=== PATIENT | male | born 1995 | race Caucasian/White ===

== ENCOUNTER 2022-03-24 19:08 | Emergency (ER) | payer OTHER, SELFPAY ==
[2022-03-24 19:10] VITALS: BP 150/83; PULSE 79; RESP 16; TEMP 36.6; O2SAT 99; BMI 27.4
--- NOTE | 2022-03-24 19:20 | ED.RN ---
Addendum entered by Corinne Rosas 03/24/22 20:58: Harvest Manager called patient and per patient he is required to have a NON DOT drug screen. Corporate care notified. Addendum entered by Corinne Rosas 03/24/22 20:09: This RN attempted again to contact Isauro Meadows, no answer. Original Note: PT REPORTS HE WORKS FOR [employer]. THIS RN ATTEMPTED TO FIND FOR WORKMANS COMP IN OUR SYSTEM, COMPANY NOT LISTED IN OUR FORMULARY. THIS RN CALLED ISAURO MEADOWS, PT SURVEILLANCE SENSOR OPERATOR AT [phone]. NO ANSWER. LEFT VOICEMAIL WITH CALLBACK NUMBER AND BRIEF MESSAGE STATING, ONE OF HIS EMPLOYEES IS BEING SEEN FOR A WORK RELATED INJURY, AND TO CALL BACK TO THE HOSPITAL FOR US TO OBTAIN FURTHER INFORMATION REGARDING WORKMANS COMP. PRIMARY RN INFORMED ALSO.
--- NOTE | 2022-03-24 19:24 | RAD_ITS ---
EXAM: XR RIGHT KNEE COMPLETE, 4 OR MORE VIEWS CLINICAL INDICATION: trauma TECHNIQUE: Four or more views of the right knee. This report was created using [employer] report generation technology. COMPARISON: None. FINDINGS: BONES/JOINTS: Unremarkable. No acute fracture. No subluxation. Normal alignment. Preservation of the joint space with the exception of mild narrowing of the medial joint compartment and mild subchondral sclerosis of the medial tibial plateau. No joint effusion. No sclerotic or destructive changes observed. SOFT TISSUES: Mild soft tissue swelling anterior to the patella and infrapatellar ligament region. No soft tissue swelling or gas. No radiopaque foreign body. RAD/Knee 4 or More Views IMPRESSION: Mild degenerative changes at the medial joint compartment. Mild superficial soft tissue swelling. No other obviously acute findings. Electronically Signed: Ruth Heath MD at 20:09 EDT ,
--- NOTE | 2022-03-24 19:25 | EDS_ITS ---
HPI History of Present Illness Chief Complaint: Lower Extremity Injury Informant: patient Narrative Narrative: Yesterday patient hurt his right knee at work. He was tightening strap on a trailer. He was pulling down hard when the strap broke. This caused him to fall to the ground. He somehow landed with his leg under him. When he got up he could not fully straighten his right knee. He kicked it and it went straight he had a pop. Since then he has been able to move the knee. It is somewhat painful with weightbearing. It has some mild swelling. He has had problems with his knee in the past. He had repair of a bucket-handle meniscus injury back in about October 2020. He had been doing well until the event yesterday. No other injury. No chronic medical conditions No routine medications Allergy to Toradol and tramadol Surgery as above [facility] Medical History Injury of left clavicle Meniscus, medial, bucket handle tear, old Right inguinal hernia Home Medications NK 03/24/22 [History Last Taken Unknown] Allergy/AdvReac Type Severity Reaction Status Date / Time ketorolac [From Toradol] Allergy Hives Verified 03/24/22 19:08 tramadol Allergy Hives Verified 03/24/22 19:08 Social History Smoking Status: Current every day smoker tobacco type: cigarettes ROS ROS ED Constitutional Constitutional ED: Denies chills or fever(s) Gastrointestinal Gastrointestinal: Denies nausea or vomiting Musculoskeletal Musculoskeletal: Reports arthralgias and other Details: See history of present illness ; Denies back pain or neck pain Integumentary Denies abscess, Abrasions or rash Neurologic Neurologic: Denies paresthesias or weakness EXAM Physical Exam Const Vital Signs: 03/24/22 19:10 Temperature 97.8 F Temperature Source Temporal Pulse Rate 79 Respiratory Rate 16 Blood Pressure 150/83 H Blood Pressure Mean 105 Pulse Ox 99 Oxygen Delivery Method Room Air Positive well nourished and well developed General Appearance ED: well developed and NAD HEENT Negative for trauma Chest Wall inspection of chest normal Resp normal respiratory effort Extremity Extremity Narrative: Right knee does have a small effusion. But its not red or warm. No abrasions. No deformity. Extensor mechanism is intact. There is no distal swelling or tenderness. Distal pulses are intact. Distal sensation is intact. Neuro oriented x3 Sensorium / Orientation: alert Sensory Exam: No sensory level loss detected Motor Exam: strength 5/5 throughout Psych mental status grossly normal Skin no rashes or lesions noted and no wounds Trauma: Negative for abrasion MDM MDM MDM Narrative Medical decision making narrative: Patient's x-ray shows some mild degenerative changes but no acute process/bony fracture. There is some soft tissue swelling. Patient's knee is stable on exam. No medial collateral or cruciate laxity noted. I do not think he needs a knee immobilizer. He may need outpatient follow-up and possible MRI. I think it is more likely he had knee locking due to meniscal injury than knee/patellar dislocation. He has excellent distal pulses. No posterior tenderness. He will be treated with rest ice nonsteroidals and follow-up. He has seen Dr. Garcia in the past for his right knee and will follow up. Radiography Diagnostic Testing: Clinical Impression(s) from Imaging Studies Knee X-Ray 03/24/22 19:24 IMPRESSION: Mild degenerative changes at the medial joint compartment. Mild superficial soft tissue swelling. No other obviously acute findings. Electronically Signed: Ruth Heath MD at 20:09 EDT , Discharge Plan Triage Chief Complaint: Lower Extremity Injury ED Provider: Renan Villaseñor Dx/Rx/DC Orders Clinical Impression: Contusion of knee, right, Strain of knee Instructions: ED Meniscal Injury Knee Poss Prescriptions: No Action NK RF: 0 Primary Care Provider: Josey Hernandez NP Referrals: Glen Garcia MD [STAFF PHYSICIAN] - As soon as possible Disposition Disposition: Home, Self Care
[2022-03-24 20:54] VITALS: RESP 18
[2022-03-24] MEDS: HYDROcodone Bitartrate/Apap 5/325 Tablet PO (21:18)
== END 2022-03-24 21:52 | disposition home or self-care (01) ==
LOC: ED 19:55
PROVIDERS: Emergency Provider Emergency Medicine; PCP Nurse Practitioner Family; Visit Provider Emergency Medicine
DX: S80.01XA Contusion of right knee, initial encounter (principal); F17.210 Nicotine dependence, cigarettes, uncomplicated; W19.XXXA Unspecified fall, initial encounter; S83.91XA Sprain of unspecified site of right knee, initial encounter
CPT/HCPCS: 73564; 99283

== ENCOUNTER 2023-09-10 09:27 | Emergency (ER) | payer OTHER, SELFPAY ==
[2023-09-10 09:28] VITALS: BP 142/83; PULSE 91; RESP 16; TEMP 36.4; O2SAT 99; BMI 30.7
--- NOTE | 2023-09-10 09:51 | EX.ED.DYSGE1 ---
HPI History of Present Illness Chief Complaint: Rash Informant: patient Onset/Context/Timing Onset: Yesterday Context: Sudden Onset Timing: Continuous Quality: Sharp Location: Bilateral groin Worsened by: Pressure Relieved by: Nothing Narrative Narrative: Patient presents with bilateral inguinal pain that began yesterday. Patient states it began rather suddenly. Patient describes the pain as sharp. Patient states that his bilateral groin area. Patient states it is worse with any pressure to the area. Patient states nothing seems to help with the pain. Patient states it has been constant. Patient denies any fevers or chills. Patient denies any dysuria or hematuria. Patient admits to some mild testicular pain. Patient denies any urethral discharge or drainage. Patient was recently put on prednisone for a rash. [facility] Medical History (Updated 09/10/23 @ 11:[address] Alcides Waldrop DO) Injury of left clavicle Meniscus, medial, bucket handle tear, old Right inguinal hernia Home Medications citalopram 10 mg tablet 10 mg PO DAILY 09/10/23 [History Last Taken 09/09/23] hydrocodone-acetaminophen 5-325mg 5mg-325mg 1 tab PO Q6H PRN pain 3 days #10 tabs 09/10/23 [Rx Last Taken Unknown] Allergy/AdvReac Type Severity Reaction Status Date / Time ketorolac [From Toradol] Allergy Hives Verified 09/10/23 09:30 tramadol Allergy Hives Verified 09/10/23 09:30 Surgical History Hx of arthroscopy of right knee Hx of inguinal herniorrhaphy Social History Smoking Status: Current every day smoker tobacco type: cigarettes ROS ROS ED Constitutional Constitutional ED: Denies chills or fever(s) Eyes Eyes: Denies blurry vision or change in vision ENT ENT ED: Reports sore throat; Denies rhinorrhea Cardiovascular Cardiovascular: Denies chest pain or palpitations Respiratory/Chest Respiratory/Chest: Denies cough or dyspnea Gastrointestinal Gastrointestinal: Reports nausea; Denies vomiting Genitourinary Genitourinary ED: Denies dysuria or hematuria Musculoskeletal Musculoskeletal: Denies back pain or neck pain Integumentary Reports rash; Denies abscess Neurologic Neurologic: Denies headache(s) or weakness Allergic/Immunologic Allergic/Immunologic ED: Denies mouth swelling or urticaria EXAM Physical Exam Const Vital Signs: 09/10/23 09:28 Temperature 97.6 F L Temperature Source Temporal Pulse Rate 91 Respiratory Rate 16 Blood Pressure 142/83 H Blood Pressure Mean 102 Pulse Ox 99 Oxygen Delivery Method Room Air Positive well nourished and well developed General Appearance ED: well developed and NAD HEENT Reports moist mucous membranes Eyes PERRL and EOMs intact bilaterally Neck supple and no JVD Resp normal respiratory effort and clear to auscultation bilaterally Cardio regular rate and regular rhythm GI non-distended GI Narrative: There is mild tenderness in the inguinal areas bilaterally. There are no hernias palpated. Palpation: soft Narrative: There is mild testicular tenderness. There are no masses palpated. Extremity normal to inspection Neuro oriented x3, CN's II-XII intact bilaterally and no sensory deficits noted Sensorium / Orientation: alert Motor Exam: strength 5/5 throughout MDM MDM MDM Narrative Medical decision making narrative: Differential diagnosis includes inguinal strain, ureteral calculus, urinary tract infection, orchitis, and viral illness. CBC will be obtained to assess for leukocytosis and anemia. Basic metabolic profile will be obtained to assess for electrolyte abnormality and renal function. Urinalysis will be obtained to assess for urinary tract infection and hematuria. CT scan of the abdomen pelvis will be obtained to assess for ureteral calculus. Lab Data Attestation: I reviewed the patient's lab results. Lab results narrative: CBC was reviewed and shows a mild leukocytosis of 13.5. This is likely due to the prednisone. Basic metabolic profile was reviewed and was within normal limits. Urinalysis was reviewed. There is no evidence of urinary tract infection or hematuria. Labs: Laboratory Results - last 24 hr 09/10/23 09/10/23 10:15 10:30 WBC 13.5 H RBC 4.35 L Hgb 13.3 Hct 39.7 L MCV 91.3 MCH 30.6 MCHC 33.5 RDW Std Deviation 42.5 RDW Coeff of Derrek 12.7 Plt Count 358 MPV 9.3 Immature Gran % (Auto) 0.300 Neut % (Auto) 69.3 Lymph % (Auto) 19.1 [place] % (Auto) 9.3 Eos % (Auto) 1.9 Baso % (Auto) 0.1 Absolute Neuts (auto) 9.3 H Absolute Lymphs (auto) 2.58 Nucleated RBC % 0 Sodium 140 Potassium 4.0 Chloride 109 H Carbon Dioxide 25.0 Anion Gap 6 BUN 12 Creatinine 0.66 L Estim Creat Clear Calc 151.71 Est GFR (MDRD) Af Amer 185 Est GFR (MDRD) Non-Af 153 BUN/Creatinine Ratio 18.2 Glucose 91 Calcium 8.9 Urine Color Yellow Urine Clarity Clear Urine pH 8.0 Ur Specific [place] 1.015 Urine Protein Negative Urine Glucose (UA) Normal Urine Ketones Negative Urine Occult Blood Negative Urine Nitrite Negative Urine Bilirubin Negative Urine Urobilinogen Normal Ur Leukocyte Esterase Negative Urine RBC 0 SEEN Urine WBC 0 SEEN Ur Squamous Epith Cells 0 SEEN Urine Bacteria 0 SEEN Urine Mucus 0 SEEN Radiography Diagnostic Testing: Clinical Impression(s) from Imaging Studies Abdomen/Pelvis CT 09/10/23 10:04 IMPRESSION: Small umbilical hernia containing fat. Small bilateral inguinal lymph nodes. Electronically Signed: Morris Robles MD at 10:52 EST , CT scan of the abdomen pelvis was obtained. There is a small umbilical hernia contains fat. There are small bilateral inguinal lymph nodes. There is no acute abnormality. There is no free air or free fluid. This was interpreted by the radiologist was also independently reviewed by myself. Treatment and Re-Evaluation :: Patient was advised of his findings. On reevaluation, patient is complaining of pain in his left great toe. Examination of the left foot revealed tenderness and mild edema over the left first MTP joint. Patient was advised that this could be gout or pseudogout. Since the patient is currently on prednisone, patient was advised that this would help with the inflammation and pain in his left great toe. Patient was given a prescription for a short course of Dagmar. Patient was instructed to follow-up with his primary care physician in 5 to 7 days. Patient understood and was agreeable with the plan. All questions were answered. Discharge Plan Triage Chief Complaint: Rash ED Provider: Alcides Waldrop Dx/Rx/DC Orders Clinical Impression: Acute inguinal lymphadenitis, Pain of left great toe Instructions: Lymphadenopathy, ED Gout Prescriptions: Continued hydrocodone-acetaminophen 5-325 mg tablet 1 tab PO Q6H PRN (Reason: pain) 3 Days Qty: 10 0RF No Action citalopram 10 mg tablet 10 mg PO DAILY Patient Comments: TAKE 1 TABLET BY MOUTH ONCE DAILY Primary Care Provider: Josey Hernandez NP Referrals: Josey Hernandez NP, LEASE ADMINISTRATION SUPERVISOR-C [Primary Care Provider] - 3-5 Days Disposition Disposition: Home, Self Care
--- NOTE | 2023-09-10 10:04 | CT_ITS ---
STUDY: CT ABDOMEN AND PELVIS WITHOUT CONTRAST REASON FOR EXAM: Male, 27 years old. Left groin pain. RADIATION DOSAGE (If Supplied By Facility): CTDIvol = ( 8.85 ) mGy, DLP = ( 437.53 ) mGycm TECHNIQUE: Transaxial images were obtained from the dome of the diaphragm to the symphysis pubis without oral contrast, and without intravenous contrast. Sagittal and coronal images were reconstructed. Individualized dose optimization techniques were used for this CT. COMPARISON: Comparison is made with prior study dated May 11, 2015 FINDINGS: The visualized lung bases are unremarkable. The visualized portions of the heart are within normal limits. Normal liver. Normal gallbladder and extrahepatic biliary system. Normal spleen. Normal pancreas. Normal bilateral adrenal glands. Normal right kidney. Normal left kidney. Normal visualized stomach. Normal small intestine. Normal colon. The appendix is visualized and appears normal. Normal abdominal aorta. Normal inferior vena cava. Normal retroperitoneum. Normal urinary bladder. There is a small umbilical hernia containing fat. Small bilateral inguinal lymph nodes. Normal osseous structures. CT/Abdomen/Pelvis without Cont IMPRESSION: Small umbilical hernia containing fat. Small bilateral inguinal lymph nodes. Electronically Signed: Morris Robles MD at 10:52 [facility] ,
[2023-09-10] MEDS: 0.9% Normal Saline (1000mL) 1,000 ML 1000 ML IV (10:27)
[2023-09-10] MEDS: Morphine 4 MG/ML Syringe IV (10:27)
[2023-09-10] MEDS: Ondansetron 4 MG/2 ML Vial IV (10:27)
[2023-09-10 10:36] LABS: Bacteria 0 SEEN /hpf (None Seen); Mucous, Urine 0 SEEN /hpf (<or=2+); Red Blood Cells-Urine 0 SEEN /hpf (0-5); Squamous Epithelial Cells - UA 0 SEEN /hpf (0-5); White Blood Cells 0 SEEN /hpf (0-5)
[2023-09-10 10:39] LABS: Absolute Lymphocyte Count 2.58 X10^3/uL (0.83-4.51); Absolute Neutrophil Count 9.3 X10^3/uL (2.0-7.7); Basophil# 0.02 X10^3/uL; Basophil% 0.1 % (0-1); Eosinophil# 0.26 X10^3/uL; Eosinophils% 1.9 % (0-5); Hematocrit 39.7 % (40-54); Hemoglobin 13.3 g/dL (13.0-16.5); Lymphocyte # 2.58 X10^3/ul (0.83-4.51); Lymphocyte % 19.1 % (19-41); Mean Corp Hgb Conc 33.5 g/dL (32-36); Mean Corpuscular Hgb 30.6 pg (27.0-32.0); Mean Corpuscular Volume 91.3 fL (80-94); Mean Platelet Vol. 9.3 fl (6.2-12.0); Monocyte# 1.25 X10^3/uL; Monocyte% 9.3 % (0-10); NRBC Flagged by Analyzer 0 % (0-5); Neutrophil # 9.33 X10^3/uL (2.7-7.7); Neutrophil % 69.3 % (47-70); Platelet Count 358 K/mm3 (150-450); RBC Distribution Width CV 12.7 % (11.6-14.6); RBC Distribution Width SD 42.5 fl (35.1-43.9); Red Blood Count 4.35 M/mm3 (4.6-6.2); White Blood Count 13.5 K/mm3 (4.4-11.0)
[2023-09-10 10:40] LABS: Color, Urine Yellow (Yellow); Glucose, Dipstick Normal (Normal); Ketone-Dipstick Negative (Negative); Leukocyte Esterase-Dipstick Negative /ul (Negative); Nitrite-Dipstick Negative (Negative); Occult Blood-Urine Negative /ul (Negative); Protein-Dipstick Negative (Negative); Specific Gravity, Urine 1.015 (1.002-1.030); Urine Bilirubin Dipstick Negative (Negative); Urine Clarity Clear (Clear); Urine Urobilinogen Normal (Normal)
[2023-09-10 10:47] LABS: Anion Gap 6 (5-15); BUN 12 mg/dL (7-18); BUN/Creat Ratio 18.2 RATIO (10-20); Calcium,Total 8.9 mg/dL (8.5-10.1); Chloride 109 mmol/L (98-107); Creatinine, Serum 0.66 mg/dL (0.70-1.30); EST Glomerular Filtration Rate 153 mL/min (>60); Est Glom Filt Rate - Afr Amer 185 mL/min (>60); Estimated Creatinine Clearance 151.71 ml/min; Glucose 91 mg/dL (74-106); Sodium Level 140 mmol/L (136-145)
[2023-09-10 12:09] VITALS: RESP 16
== END 2023-09-10 12:13 | disposition home or self-care (01) ==
PROVIDERS: Emergency Provider Emergency Medicine; PCP Nurse Practitioner Family; Visit Provider Emergency Medicine
DX: L04.1 Acute lymphadenitis of trunk (principal); F17.210 Nicotine dependence, cigarettes, uncomplicated; M79.675 Pain in left toe(s)
CPT/HCPCS: 74176; 80048; 81001; 85025; 96361; 96374; 96375; 99283; A4216; J2405

== ENCOUNTER 2025-01-02 18:18 | Emergency (ER) | payer OTHER, SELFPAY ==
[2025-01-02 18:18] VITALS: BP 131/88; PULSE 88; RESP 14; TEMP 36.6; O2SAT 98; BMI 28.6
--- NOTE | 2025-01-02 18:35 | EKG12_ITS ---
Test Reason : CP Blood Pressure : */* mmHG Vent. Rate : 79 BPM Atrial Rate : 79 BPM P-R Int : 142 ms QRS Dur : 86 ms QT Int : 348 ms P-R-T Axes : 25 36 28 degrees QTcB Int : 399 ms Normal sinus rhythm with sinus arrhythmia Normal ECG Confirmed by PEDRO LEDEZMA, NICOLE ([id number]), editorial director SAMARA CAMPOS ([id number]) on 01/04/2025 6:43:07 AM Referred By: SAIRA Confirmed By: NICOLE VASQUEZ MD
--- NOTE | 2025-01-02 18:36 | EDS_ITS ---
HPI History of Present Illness Chief Complaint: Chest Pain Detail of Chief Complaint: Back pain and chest pain Informant: patient Narrative Narrative: Patient presents with pain in his back that started about 6 days ago. Patient states he woke up with that kind of from the lower ribs posteriorly up to his shoulders. Patient thought maybe he slept wrong so he went to a chiropractor who tried to adjust him but could not. He continues to have pain and spasm. At times the pain kind of comes through to the front of his chest. He had some nausea. He denied abdominal pain. Denied recent illness. Denied injury to his back. No history of PE or DVT. Denied recent travel or surgery [facility] Medical History (Updated 01/02/25 @ 20:[address] Ronald Cox, DO) Injury of left clavicle Meniscus, medial, bucket handle tear, old Right inguinal hernia Home Medications ?Medication ?Instructions ?Recorded ?Last Taken ?Type citalopram 10 mg tablet 10 mg PO DAILY 09/10/2308/15 History hydrocodone-acetaminophen 5-325mg 1 tab PO Q6H PRN clarita n 3 days #10 09/10/23 Unknown Rx 5mg-325mg tabs diazepam 5 mg tablet (Valium) 5 mg PO TID PRN muscle s pasm #10 01/02/25 Unknown Rx tabs hydrocodone-acetaminophen 5-325mg 1 tab PO Q4H PRN PRN Pain 2 days 01/02/25 Unknown Rx 5mg-325mg #14 TABLETS Allergy/AdvReac Type Severity Reaction Status Date / Time ketorolac (From Toradol) Allergy Hives Verified 01/02/25 18:20 tramadol Allergy Hives Verified 01/02/25 18:20 Surgical History Hx of inguinal herniorrhaphy Hx of arthroscopy of right knee Social History Smoking Status: Current every day smoker tobacco type: cigarettes ROS ROS ED Review of Systems ROS Unobtainable: other Constitutional Constitutional ED: Reports lethargy; Denies chills, fever(s), sweats or weight loss Eyes Eyes: Denies blurry vision, change in vision or diplopia ENT ENT ED: Denies rhinorrhea or sore throat Cardiovascular Cardiovascular: Reports chest pain; Denies orthopnea or racing heartbeat Respiratory/Chest Respiratory/Chest: Denies cough, dyspnea, dyspnea on exertion, orthopnea or sputum Gastrointestinal Gastrointestinal: Denies abdominal pain, diarrhea, nausea or vomiting Genitourinary Genitourinary ED: Denies dysuria, hematuria or urinary frequency Musculoskeletal Musculoskeletal: Reports back pain; Denies arthralgias, myalgias or neck pain Integumentary Denies abscess, Abrasions or rash Neurologic Neurologic: Denies headache(s) or weakness Psychiatric Psychiatric: Denies anxiety, depression or suicidal thoughts Endocrine Endocrinology: Denies polydipsia, polyphagia or polyuria Hematologic/Lymphatic Hematologic/Lymphatic: Denies easy bleeding, easy bruising or lymphadenopathy Allergic/Immunologic Allergic/Immunologic ED: Denies mouth swelling, tongue swelling or urticaria EXAM Physical Exam Const Vital Signs: 01/02/25 18:18 01/02/25 18:55 Temperature 97.9 F Temperature Source Temporal Pulse Rate 88 Respiratory Rate 14 Respiratory Effort Normal Non-Labored Blood Pressure 131/88 H Blood Pressure Mean 102 Pulse Ox 98 Oxygen Delivery Method Room Air Positive well nourished and well developed General Appearance ED: well developed and NAD HEENT Reports TM's clear and moist mucous membranes normocephalic and atraumatic; Negative for trauma or tenderness Tympanic Membrane ED: Yes TM's clear Eyes PERRL and EOMs intact bilaterally General Eye ED: Negative for pale conjunctiva or scleral icterus Neck no lymphadenopathy, supple and no JVD General: Negative for tenderness Chest Wall inspection of chest normal and palpation of chest normal Chest: Negative for tenderness Resp normal respiratory effort and clear to auscultation bilaterally Effort and Inspection: Negative for respiratory distress or pain with movement Auscultation: Negative for rhonchi, wheezes or diminished lung sounds Cardio regular rate, regular rhythm, S1 normal heart sound, S2 normal heart sound and no murmurs Peripheral Pulses: pulses 2+ throughout GI normal to inspection, nondistended, normoactive bowel sounds, soft to palpation, non-distended and no masses GI Narrative: Tenderness palpation over right upper quadrant and epigastric region with some mild guarding. There is no rebound, rigidity, or peritoneal signs. No mass palpated. Back/Spine no CVA tenderness Back/Spine Narrative: Patient with diffuse tenderness palpation over the thoracic paraspinal musculature bilaterally. Tenderness also in the lumbar paraspinal region. Extremity normal to inspection General Extremety ED: Negative for edema General Extremity: Negative for edema Neuro oriented x3, CN's II-XII intact bilaterally, no sensory deficits noted and gait normal Sensorium / Orientation: awake, alert, oriented to person, oriented to place and oriented to time Motor Exam: strength 5/5 throughout and strength abnormal Psych mental status grossly normal Skin no rashes or lesions noted and no wounds MDM MDM MDM Narrative Medical decision making narrative: Patient presents with atraumatic back pain also complaining of some abdominal pain and some nausea. Patient complains of lot of significant spasm throughout his back. Patient was given a dose of Valium 4 mg p.o. CBC with differential obtained showed a white count 9.7 hemoglobin 14.8 and platelet count of 327. Chemistries unremarkable. LFTs essentially unremarkable with an AST of 32 and an ALT of 62. Alk phos was normal at 104. Troponin was less than 6. Lipase minimally elevated at 86 but I do not feel this is significant. I do not think he has pancreatitis. CTA of chest abdomen pelvis obtained to rule out thing such as dissection or PE. CTA of chest abdomen pelvis was essentially normal. They did not see any bony abnormalities or lesions. At this point he will be discharged to home diagnosis back pain. He will be given a prescription for Valium and a few [place] for pain. Advised to follow-up with his primary care physician within next 3 to 5 days. Lab Data Attestation: I reviewed the patient's lab results. Labs: Laboratory Results - last 24 hr 01/02/25 10:53 WBC 9.7 RBC 4.86 Hgb 14.8 Hct 44.1 MCV 90.7 MCH 30.5 MCHC 33.6 RDW Std Deviation 42.5 RDW Coeff of Derrek 12.9 Plt Count 327 MPV 9.6 Immature Gran % (Auto) 0.200 Neut % (Auto) 46.4 L Lymph % (Auto) 40.7 [place] % (Auto) 10.5 H Eos % (Auto) 2.0 Baso % (Auto) 0.2 Absolute Neuts (auto) 4.5 Absolute Lymphs (auto) 3.96 Nucleated RBC % 0 Sodium 138 Potassium 4.3 Chloride 104 Carbon Dioxide 22.1 Anion Gap 12 BUN 15 Creatinine 0.78 Estim Creat Clear Calc 153.49 Est GFR (MDRD) Non-Af 124 BUN/Creatinine Ratio 19.5 Glucose 74 Calcium 10.1 Total Bilirubin 0.25 AST 32 ALT 62 H Alkaline Phosphatase 104 Troponin T High Sens < 6 Total Protein 7.8 Albumin 4.5 Globulin 3.4 Albumin/Globulin Ratio 1.3 Lipase 86 H Radiography Diagnostic Testing: Clinical Impression(s) from Imaging Studies Chest/Abdomen/Pelvis CTA 01/02/25 18:39 IMPRESSION: No aortic aneurysm or dissection. There are no acute pulmonary embolism. No acute pulmonary findings. No acute abdominal or pelvic findings. Reading Location: [facility] EKG Initial EKG: Attestation: I personally reviewed and interpreted this EKG as follows: Comments: Sinus rhythm with ventricular rate of 79 bpm with no acute ST segment changes Discharge Plan Triage Chief Complaint: Chest Pain ED Provider: Ronald Cox Dx/Rx/DC Orders Clinical Impression: Back pain Instructions: ED Back Pain (Acute or Chronic) Prescriptions: New hydrocodone-acetaminophen 5-325 mg tablet 1 tab PO Q4H PRN PRN (Reason: Pain) 2 Days Qty: 14 0RF diazepam [Valium] 5 mg tablet 5 mg PO TID PRN (Reason: muscle spasm) Qty: 10 0RF No Action citalopram 10 mg tablet 10 mg PO DAILY Patient Comments: TAKE 1 TABLET BY MOUTH ONCE DAILY hydrocodone-acetaminophen 5-325 mg tablet 1 tab PO Q6H PRN (Reason: pain) 3 Days Qty: 10 0RF Primary Care Provider: Jovanna Rangel Referrals: Josey Hernandez [employer] PROFESSOR [employer], [employer]OR [employer] [Non-Staff] - 3-5 Days Print Language: Uzbek Disposition Disposition: Home, Self Care
--- NOTE | 2025-01-02 18:39 | CT_ITS ---
EXAM: CTA CHST, ABD, PEL W AND/OR WO CLINICAL HISTORY: BACK, CHEST , AND ABDOMEN PAIN COMPARISON: No relevant comparison studies are available for review. TECHNIQUE: CT angiogram of the chest, abdomen and pelvis were performed was before and after administration of 100 ml of Omnipaque 350 was administered intravenously. Images were sent to MIP postprocessing was performed in multiple planes. Automatic exposure control was utilized for this scan. Preoperative planning for transcatheter aortic valvular replacement. FINDINGS: Aorta is normal in caliber. There is no aortic aneurysm or dissection. The celiac artery, superior mesenteric and inferior mesenteric arteries are widely patent. Renal arteries are widely patent. The iliac arteries are patent. There are no focal consolidation, pleural effusion or pneumothorax. There are no mediastinal, hilar or axillary lymphadenopathy. Liver parenchyma is unremarkable. There are no ductal dilatation or discrete mass seen. Gallbladder is unremarkable. There are no gallstones. Pancreas and spleen are unremarkable. There are no adrenal glands mass. Kidneys enhance symmetrically without hydronephrosis. No cystic mass seen. No solid mass evident. Evaluation of the bowel loops are limited due to lack of oral contrast. There is no evidence of bowel obstruction or acute appendicitis. There is no free air or free fluid. No lymphadenopathy. Osseous structures are intact. CT/CTA Chst, Abd, Pel W and/or WO IMPRESSION: No aortic aneurysm or dissection. There are no acute pulmonary embolism. No acute pulmonary findings. No acute abdominal or pelvic findings. Reading Location: [facility]
[2025-01-02] MEDS: diazePAM 2 MG Tablet 4 MG PO (18:54)
[2025-01-02 19:02] LABS: Absolute Lymphocyte Count 3.96 X10^3/uL (0.83-4.51); Absolute Neutrophil Count 4.5 X10^3/uL (2.0-7.7); Basophil# 0.02 X10^3/uL; Basophil% 0.2 % (0-1); Eosinophil# 0.19 X10^3/uL; Hematocrit 44.1 % (40-54); Hemoglobin 14.8 g/dL (13.0-16.5); Lymphocyte # 3.96 X10^3/ul (0.83-4.51); Lymphocyte % 40.7 % (19-41); Mean Corp Hgb Conc 33.6 g/dL (32-36); Mean Corpuscular Hgb 30.5 pg (27.0-32.0); Mean Corpuscular Volume 90.7 fL (80-94); Mean Platelet Vol. 9.6 fl (6.2-12.0); Monocyte# 1.02 X10^3/uL; Monocyte% 10.5 % (0-10); NRBC Flagged by Analyzer 0 % (0-5); Neutrophil # 4.51 X10^3/uL (2.7-7.7); Neutrophil % 46.4 % (47-70); Platelet Count 327 K/mm3 (150-450); RBC Distribution Width CV 12.9 % (11.6-14.6); RBC Distribution Width SD 42.5 fl (35.1-43.9); Red Blood Count 4.86 M/mm3 (4.6-6.2); White Blood Count 9.7 K/mm3 (4.4-11.0)
[2025-01-02 19:23] LABS: ALB/GLOB Ratio 1.3 RATIO (0.9-2.4); AST(SGOT) 32 U/L (<=37); Alanine Aminotransfer ALT/SGPT 62 U/L (<=46); Albumin, Serum 4.5 g/dL (3.5-5.0); Alkaline Phosphatase 104 U/L (40-129); Anion Gap 12 (5-15); BUN 15 mg/dL (4-19); BUN/Creat Ratio 19.5 RATIO (10-20); Calcium,Total 10.1 mg/dL (7.6-11.0); Carbon Dioxide 22.1 mmol/L (21.0-32.0); Chloride 104 mmol/L (98-108); Creatinine, Serum 0.78 mg/dL (0.70-1.20); EST Glomerular Filtration Rate 124 (>60); Estimated Creatinine Clearance 153.49 ml/min (50-250); Globulin 3.4 g/dL (2.2-4.2); Glucose 74 mg/dL (70-99); Lipase 86 U/L (13-75); Potassium 4.3 mmol/L (3.3-5.1); Protein, Total 7.8 g/dL (5.9-8.4); Sodium Level 138 mmol/L (133-145); Total Bilirubin 0.25 mg/dL (0.00-1.30); Troponin T High Sensitivity < 6 ng/L (<=22)
[2025-01-02 21:01] VITALS: BP 128/79; PULSE 87; RESP 16; TEMP 36.6; O2SAT 99
== END 2025-01-02 21:02 | disposition home or self-care (01) ==
PROVIDERS: Emergency Provider Emergency Medicine; Visit Provider Emergency Medicine
DX: M54.9 Dorsalgia, unspecified (principal); R11.0 Nausea; R10.9 Unspecified abdominal pain; F17.210 Nicotine dependence, cigarettes, uncomplicated; R07.9 Chest pain, unspecified
CPT/HCPCS: 71275; 74174; 80053; 83690; 84484; 85025; 93005; 99282; Q9967